=== PATIENT | male | born 1995 | race Caucasian/White ===

== ENCOUNTER 2019-09-12 16:17 | Emergency (ER) | payer OTHER ==
[2019-09-12] MEDS ORDERED: DIPH,PERTUS(ACELL)TETVAC-LF 0.5 ML VIAL IM ONE (16:47)
--- NOTE | 2019-09-12 16:52 | ED ---
Wound/Laceration HPI - General Chief Complaint: Wound/Laceration Stated Complaint: head injury-[facility] Time Seen by Provider: 09/12/19 16:41 Source: patient Mode of arrival: ambulatory Limitations: no limitations - History of Present Illness Initial Comments: Patient is a 24-year-old male presenting to emergency Department with chief complaint of head injury. Patient states he was at work when a 50 pound chain fell on his head. Patient denies any loss of consciousness. States immediately after incident and he developed large amounts of bleeding. States he applied pressure and came straight to the emergency department for evaluation. Denies any lightheadedness, dizziness, blurry vision, one-sided weakness or paresthesias. States his tetanus is not up to date. Denies taking medication to alleviate the symptoms. - Related Data Allergies Allergy/AdvReac Type Severity Reaction Status Date / Time No Known Allergies Allergy Verified 09/12/19 16:31 Review of Systems ROS Statement: Those systems with pertinent positive or pertinent negative responses have been documented in the HPI. ROS Other: All systems not noted in ROS Statement are negative. Past Medical History Past Medical History: No Reported History History of Any Multi-Drug Resistant Organisms: None Reported Past Surgical History: No Surgical Hx Reported Smoking Status: Never smoker Past Alcohol Use History: None Reported Past Drug Use History: None Reported General Exam Limitations: no limitations General appearance: alert, in no apparent distress Head exam: Present: normocephalic, normal inspection. Absent: atraumatic (Hematoma measuring 3 cm in diameter. Linear Laceration measuring approximately 3 cm. Arterial bleed noted.), other (Negative Rooney sign, negative raccoon eyes, negative hemotympanum.) Eye exam: Present: normal appearance, PERRL, EOMI Pupils: Present: normal accommodation ENT exam: Present: normal exam, normal oropharynx (No oral trauma), mucous membranes moist, TM's normal bilaterally, normal external ear exam Neck exam: Present: normal inspection, full ROM. Absent: tenderness Respiratory exam: Present: normal lung sounds bilaterally Cardiovascular Exam: Present: regular rate, normal rhythm, normal heart sounds Extremities exam: Present: normal inspection, full ROM Back exam: Present: normal inspection, full ROM Neurological exam: Present: alert, oriented X3 Psychiatric exam: Present: normal affect, normal mood Skin exam: Present: warm, dry, intact, normal color Course Vital Signs 09/12/19 16:28 Temperature 97.7 F Pulse Rate 63 Respiratory 18 Rate Blood Pressure 137/87 O2 Sat by Pulse 100 Oximetry Procedures - Laceration Laceration #1 Consent Obtained: verbal consent Indication: laceration Site: scalp Size (cm): 3 Description: linear Depth: simple, single layer, arterial injury Sedation/Analgesia: none Anesthetic Used: lidocaine 1% Anesthesia Technique: local infiltration Amount (mls): 5 Pre-repair: irrigated extensively Type of Sutures: nylon Size of Sutures: 4-0, other (Adams) Number of Sutures: 6 Technique: simple, interrupted, other ([id number]) Complications: bleeding Patient Tolerated Procedure: well, no complications Medical Decision Making - Medical Decision Making Patient is a 24-year-old male presenting to emergency approach and complained of a headache injury. A 50 pound chain fell on his head causing a laceration on the right parietal region. On exam patient does appear to have a 3 cm laceration with underlying hematoma. Arterial bleed also noted. One [id number]-[id number] suture was applied. 1 simple interrupted. 4 emiliana. Patient tolerated procedure well. CT of brain C-spine is unremarkable. Patient vised to return to emergency Department in 14 days for suture removal or sooner if symptoms worsen. Return parameters thoroughly discussed with patient was icing and agreeable. Case discussed with physician. Disposition Clinical Impression: Laceration, Scalp laceration, Head injury, Scalp hematoma Disposition: HOME SELF-CARE Condition: Stable Instructions (If sedation given, give patient instructions): Care For Your Stitches (DC), Laceration (DC) Additional Instructions: Return to emergency Department in 14 days for suture or removal sooner if symptoms worsen. Is patient prescribed a controlled substance at d/c from ED?: No Referrals: None,Stated [Primary Care Provider] - 1-2 days Time of Disposition: 18:27
--- NOTE | 2019-09-12 17:33 | CT ---
EXAMINATION TYPE: CT brain giancarlo wo con DATE OF EXAM: 09/12/2019 COMPARISON: NONE HISTORY: Injury with headache and neck pain, head laceration. CT DLP: 1307.4 mGycm. Automated Exposure Control for Dose Reduction was Utilized. TECHNIQUE: CT scan of the head and cervical spine are performed without contrast. FINDINGS: There is no acute intracranial hemorrhage, mass effect, or midline shift identified. The ventricles and sulci are within normal limits in size. Bryant-white matter differentiation is maintai dawit. The globes are intact and the visualized sinuses are clear. Hypoplastic right frontal sinus inci dentally noted. Persistent anterior metopic suture which is normal variant. The calvarium is intact. Small laceration injury right parietal region axial image 37. Cervical spine is visualized in its entirety from C1 through upper thoracic levels and demonstrates r eversal of normal cervical curvature alignment without evidence of acute fracture or dislocation. Pr evertebral soft tissue appears within normal limits. The C1-C2 articulation is within normal limits on the coronal images. Vertebral body heights and disc space heights are maintained. Spinal canal is preserved. Axial images are felt within normal limits. Thyroid gland is normal in size. Lung apices a re clear. IMPRESSION: 1. There is no acute fracture or dislocation evident in the cervical spine. 2. No acute intracranial hemorrhage or midline shift is seen. Small right parietal scalp laceration i njury noted.
[2019-09-12] MEDS ORDERED: LIDOCAINE 1% INJ 10MG/ML (20 ML MDV) SQ ONE (17:53)
[2019-09-12 18:51] VITALS: BP 135/105; PULSE 82; RESP 16; TEMP 97.9
== END 2019-09-12 19:01 | disposition home or self-care (01) ==
LOC: EC 16:17
DX: S01.01XA Laceration without foreign body of scalp, initial encounter (principal); Z23 Encounter for immunization; W20.8XXA Other cause of strike by thrown, projected or falling object, initial encounter; Y92.69 Other specified industrial and construction area as the place of occurrence of the external cause; Y93.89 Activity, other specified; Y99.0 Civilian activity done for income or pay
CPT/HCPCS: 72125; 70450; 90715; 99283; 90471; 12002; J2001